=== PATIENT | female | born 1995 | race Caucasian/White ===

== ENCOUNTER 2020-10-06 23:19 | Emergency (ER) | payer MEDICAID, OTHER ==
--- NOTE | 2020-10-06 23:26 | EDM.PDOC ---
ED HPI GENERAL MEDICAL PROBLEM - General Chief Complaint: General Stated Complaint: nausea Time Seen by Provider: 10/06/20 23:26 Source of Information: Reports: Patient History Limitations: Reports: No Limitations - History of Present Illness INITIAL COMMENTS - FREE TEXT/NARRATIVE: Jeanne is a 25 yo female who presents to the ED with 24+ hours of nausea, vomiting and diarrhea. She reports she has also had low grade fever. Reports her god daughter, as well as her parents and her boyfriend have also had similar symptoms. She reports their symptoms only lasted 12 hours and then resolved. She reports she has not been able to eat/drink anything all day. Reports she vomits instantly when she tries to drink. She is worried that she is dehydrated. Reports she has not been urinating much today. Feels generalized malaise. Abdomen is tender but no significant pain. Denies any urinary symptoms. No URI symptoms. No known exposure to covid. Onset Date: 10/05/20 Duration: Constant Location: Reports: Abdomen Improves with: Reports: None Worsens with: Reports: None Associated Symptoms: Reports: Fever/Chills, Loss of Appetite, Malaise, Nausea/Vomiting. Denies: Confusion, Chest Pain, Cough, cough w sputum, Diaphoresis, Headaches, Rash, Seizure, Shortness of Breath, Syncope, Weakness - Related Data Allergies Allergy/AdvReac Type Severity Reaction Status Date / Time ibuprofen Allergy Diarrhea Verified 10/06/20 23:20 metoclopramide [From Reglan] Allergy Seizure Verified 10/06/20 23:20 pseudoephedrine Allergy Rash Verified 10/06/20 23:20 [From Sudafed] Home Meds: Home Meds norgestimate-ethinyl estradioL [Estarylla 0.25-0.035 mg Tablet] 1 each PO DAILY 10/06/20 [History] Past Medical History - Past Health History Medical/Surgical History: Denies Medical/Surgical History Social & Family History - Family History Family Medical History: No Pertinent Family History ED ROS GENERAL - Review of Systems Review Of Systems: Comprehensive ROS is negative, except as noted in HPI. ED EXAM, GENERAL - Physical Exam Exam: See Below Exam Limited By: No Limitations General Appearance: Alert, WD/WN, No Apparent Distress Eye Exam: Bilateral Eye: EOMI, PERRL Throat/Mouth: Other (dry mucous membranes) Head: Atraumatic, Normocephalic Neck: Normal Inspection, Supple, Non-Tender, Full Range of Motion Respiratory/Chest: No Respiratory Distress, Lungs Clear, Normal Breath Sounds, No Accessory Muscle Use, Chest Non-Tender Cardiovascular: Normal Peripheral Pulses, Regular Rate, Rhythm, No Edema, No Gallop, No JVD, No Murmur, No Rub GI/Abdominal: Soft, No Distention, No Abnormal Bruit, No Mass, Tender (generalized), Abnormal Bowel Sounds (hyperactive) Back Exam: Normal Inspection, Full Range of Motion. No: CVA Tenderness (L), CVA Tenderness (R) Extremities: Normal Inspection, Normal Range of Motion, Non-Tender, Normal Capillary Refill, No Pedal Edema Neurological: Alert, Oriented, CN II-XII Intact, Normal Cognition, Normal Gait, Normal Reflexes, No Motor/Sensory Deficits Psychiatric: Normal Affect, Normal Mood Skin Exam: Warm, Dry, Intact, Normal Color, No Rash Lymphatic: No Adenopathy Course - Vital Signs Last Recorded V/S: Last Vital Signs Temp 99.6 F 10/06/20 23:24 Pulse 85 10/06/20 23:24 Resp 18 10/06/20 23:24 BP 132/66 10/06/20 23:24 Pulse Ox 97 10/06/20 23:24 - Orders/Labs/Meds Labs: Laboratory Tests 10/06/20 10/06/20 10/06/20 Range/Units 23:19 23:19 23:19 WBC 7.1 (5.0-10.0) 10^3/uL RBC 4.76 (4.00-5.50) 10^6/uL Hgb 13.9 (12.0-16.0) g/dL Hct 42.6 (37.0-47.0) % MCV 89.5 (82.0-94.0) fL MCH 29.2 (27.0-32.0) pg MCHC 32.6 L (33.0-38.0) g/dL RDW Coeff of Franklin 12.8 (11.0-15.0) % Plt Count 258 (150-400) 10^3/uL Neut % (Auto) 77.3 (35-85) % Lymph % (Auto) 12.9 (10-55) % Gilchrist % (Auto) 9.2 (0-16) % Eos % (Auto) 0.3 (0-5) % Baso % (Auto) 0.3 (0-3) % Neut # (Auto) 5.48 (1.80-7.00) 10^3/uL Lymph # (Auto) 0.91 L (1.00-4.80) 10^3/uL Gilchrist # (Auto) 0.65 (0.00-0.80) 10^3/uL Eos # (Auto) 0.02 (0.00-0.45) 10^3/uL Baso # (Auto) 0.02 10^3/uL Sodium 139 (136-145) mEq/L Potassium 3.4 L (3.5-5.0) mEq/L Chloride 103 (98-106) mEq/L Carbon Dioxide 24 (21-32) mmol/L BUN 14 (7-18) mg/dL Creatinine 0.9 (0.6-1.0) mg/dL Est Cr Clr Drug Dosing 105.13 mL/min Estimated GFR (MDRD) > 60 (>=60) mL/min Glucose 100 H (75-99) mg/dL Calcium 8.3 L (8.4-10.1) mg/dL Total Bilirubin 0.6 (0.0-1.0) mg/dL AST 17 (15-37) U/L ALT 25 (12-78) U/L Alkaline Phosphatase 47 (46-116) U/L C-Reactive Protein 16.5 H (0.2-0.8) mg/dL Total Protein 7.3 (6.4-8.2) g/dL Albumin 3.5 (3.4-5.0) g/dL Amylase 27 (25-115) U/L Lipase 71 L (73-393) U/L Urine Color [place] (YELLOW) Urine Appearance Slightly cloudy (CLEAR) Urine pH 6.0 (4.5-8.0) Ur Specific [place] >= 1.030 H (1.003-1.020) Urine Protein 30 H (NEGATIVE) mg/dL Urine Glucose (UA) Negative (NEGATIVE) mg/dL Urine Ketones Negative (NEGATIVE) mg/dL Urine Occult Blood Negative (NEGATIVE) Urine Nitrite Negative (NEGATIVE) Urine Bilirubin Negative (NEGATIVE) Urine Urobilinogen 0.2 (0.2-1.0) EU/dL Ur Leukocyte Esterase Negative (NEGATIVE) Urine RBC 0-5 (0-5) /HPF Urine WBC 0-5 (0-5) /HPF Ur Squamous Epith Cells Few H (NOT SEEN) /HPF Ur Renal Epithelial Cell Few H (NOT SEEN) /HPF Urine Bacteria Few H (NOT SEEN) /HPF Urine Mucus Few H (NOT SEEN) /HPF Urine Yeast Few H (NOT SEEN) /HPF Urine HCG, Qual 10/06/20 Range/Units 23:21 WBC (5.0-10.0) 10^3/uL RBC (4.00-5.50) 10^6/uL Hgb (12.0-16.0) g/dL Hct (37.0-47.0) % MCV (82.0-94.0) fL MCH (27.0-32.0) pg MCHC (33.0-38.0) g/dL RDW Coeff of Franklin (11.0-15.0) % Plt Count (150-400) 10^3/uL Neut % (Auto) (35-85) % Lymph % (Auto) (10-55) % Gilchrist % (Auto) (0-16) % Eos % (Auto) (0-5) % Baso % (Auto) (0-3) % Neut # (Auto) (1.80-7.00) 10^3/uL Lymph # (Auto) (1.00-4.80) 10^3/uL Gilchrist # (Auto) (0.00-0.80) 10^3/uL Eos # (Auto) (0.00-0.45) 10^3/uL Baso # (Auto) 10^3/uL Sodium (136-145) mEq/L Potassium (3.5-5.0) mEq/L Chloride (98-106) mEq/L Carbon Dioxide (21-32) mmol/L BUN (7-18) mg/dL Creatinine (0.6-1.0) mg/dL Est Cr Clr Drug Dosing mL/min Estimated GFR (MDRD) (>=60) mL/min Glucose (75-99) mg/dL Calcium (8.4-10.1) mg/dL Total Bilirubin (0.0-1.0) mg/dL AST (15-37) U/L ALT (12-78) U/L Alkaline Phosphatase (46-116) U/L C-Reactive Protein (0.2-0.8) mg/dL Total Protein (6.4-8.2) g/dL Albumin (3.4-5.0) g/dL Amylase (25-115) U/L Lipase (73-393) U/L Urine Color (YELLOW) Urine Appearance (CLEAR) Urine pH (4.5-8.0) Ur Specific [place] (1.003-1.020) Urine Protein (NEGATIVE) mg/dL Urine Glucose (UA) (NEGATIVE) mg/dL Urine Ketones (NEGATIVE) mg/dL Urine Occult Blood (NEGATIVE) Urine Nitrite (NEGATIVE) Urine Bilirubin (NEGATIVE) Urine Urobilinogen (0.2-1.0) EU/dL Ur Leukocyte Esterase (NEGATIVE) Urine RBC (0-5) /HPF Urine WBC (0-5) /HPF Ur Squamous Epith Cells (NOT SEEN) /HPF Ur Renal Epithelial Cell (NOT SEEN) /HPF Urine Bacteria (NOT SEEN) /HPF Urine Mucus (NOT SEEN) /HPF Urine Yeast (NOT SEEN) /HPF Urine HCG, Qual Negative Meds: Medications Discontinued Medications Generic Name Dose Route Start Last Admin Trade Name Freq PRN Reason Stop Dose Admin Lactated Ringer's 1,000 mls @ 999 mls/hr 10/06/20 23:33 10/06/20 23:40 Ringers, Lactated IV 10/07/20 00:33 999 mls/hr .BOLUS ONE Administration Ondansetron HCl 4 mg 10/06/20 23:33 10/06/20 23:40 Ondansetron 4 Mg/2 Ml Sdv IVPUSH 10/06/20 23:34 4 mg STAT STA Administration Ondansetron HCl 2 packet 10/07/20 00:13 10/07/20 00:41 Take Home: Ondansetron 4 Mg Tab.Dis, 2 Tab Pack PO 10/07/20 00:14 Not Given ONETIME ONE Departure - Departure Time of Disposition: 00:11 Disposition: Home, Self-Care 01 Condition: Fair Clinical Impression: Viral gastroenteritis - Discharge Information *PRESCRIPTION DRUG MONITORING PROGRAM REVIEWED*: Not Applicable *COPY OF PRESCRIPTION DRUG MONITORING REPORT IN PATIENT AMENA: Not Applicable Instructions: Viral Gastroenteritis, Adult, [id number] Forms: ED Department Discharge Additional Instructions: - Rest and push fluids - Zofran 1 tablet every 6 hours as needed - Gentry diet until symptoms improve - Follow up if symptoms worsen or do not improve over the next few days - Return to ED for emergent needs Sepsis Event Note (ED) - Focused Exam Vital Signs: Vital Signs Temp Pulse Resp BP Pulse Ox 10/06/20 23:24 99.6 F 85 18 132/66 97 - Assessment/Plan Assessment:: Viral Gastroenteritis Plan: Patient appears dry. Urine with elevated spec gravity and protein. Has had 24+ hours of vomiting and diarrhea. 1 L LR fluid bolus and 4 mg Zofran administered.
[2020-10-06] MEDS ORDERED: Lactated Ringers 1,000 ML IV ONE (23:33)
[2020-10-06] MEDS ORDERED: Ondansetron 4 MG/2 ML SDV IVPUSH STA (23:33)
[2020-10-06 23:50] LABS: CHLORIDE,CL 103 mEq/L (98-106); SODIUM,NA 139 mEq/L (136-145)
[2020-10-07] MEDS ORDERED: Take Home: Ondansetron 4 MG Tab.DIS, 2 Tab Pack PO ONE (00:13)
== END 2020-10-07 01:00 | disposition home or self-care (01) ==
LOC: CC.ED 23:19
DX: A08.4 Viral intestinal infection, unspecified (principal); Z88.6 Allergy status to analgesic agent; Z88.8 Allergy status to other drugs, medicaments and biological substances
CPT/HCPCS: 36415; 80053; 81001; 81025; 82150; 83690; 85025; 86140; 96374; 99284; A9270; J2405; J7120; 96361